=== PATIENT | male | born 1995 | race Caucasian/White ===

== ENCOUNTER 2020-10-01 17:27 | Inpatient (IN) | payer MEDICAID, OTHER ==
[~2020-10-01] VITALS: Ht 182.9 cm; Wt 77.3 kg
[2020-10-01] MEDS ORDERED: LORazepam 2 MG/ML VIAL IM ONE ×2 (21:30→22:30)
[2020-10-01] MEDS ORDERED: HALOPERIDOL LACTATE 5 MG/ML VIAL IM ONE ×2 (21:30→22:30)
[2020-10-01] MEDS ORDERED: DiphenhydrAMINE HCL 50 MG/ML VIAL IM ONE ×2 (21:30→22:30)
[2020-10-01] MEDS ORDERED: ZOLPIDEM TARTRATE 10 MG TABLET PO PRN (22:45)
[2020-10-01] MEDS ORDERED: HALOPERIDOL 5 MG TABLET PO PRN (22:45)
[2020-10-01 23:01] LABS: COVID AG,FIA SOURCE NASOPHARYNGEAL
[2020-10-01 23:55] LABS: BASOPHILS % (AUTO) 0.8 % (0.0-2.0); EOSINOPHILS % (AUTO) 0.5 % (1.0-6.0); HEMATOCRIT 42.7 % (41-53); HEMOGLOBIN 14.4 g/dL (13.5-17.5); LYMPHOCYTES # (AUTO) 2.8 K/uL (1.0-4.8); LYMPHOCYTES % (AUTO) 30.7 % (22.0-44.0); MEAN CORPUSCULAR HEMOGLOBIN 30.5 pg (26.0-34.0); MEAN CORPUSCULAR HGB CONC 33.6 G/dL (31.0-37.0); MEAN CORPUSCULAR VOLUME 91 fL (80-100); MONOCYTES # (AUTO) 0.6 K/uL (0.1-1.0); MONOCYTES % (AUTO) 6.4 % (2.0-9.0); NEUTROPHILS # (AUTO) 5.5 K/uL (1.8-7.7); NEUTROPHILS % (AUTO) 61.6 % (40.0-70.0); PLATELET COUNT (AUTO) 245 K/uL (150-450); RED BLOOD CELL COUNT(AUTO) 4.72 MIL/uL (4.50-5.90); RED CELL DISTRIBUTION WIDTH 13.1 % (11.5-14.5)
[2020-10-01 23:59] LABS: ANION GAP 5 mmol/L (8-16); CALCIUM, TOTAL 9.4 mg/dL (8.8-10.5); CARBON DIOXIDE 26 mmol/L (22-29); CHLORIDE 107 mmol/L (98-107); GLOMERULAR FILTR. RATE CALC > 60 mL/min (>60); GLUCOSE,RANDOM 97 mg/dL (70-110); POTASSIUM 3.5 mmol/L (3.5-5.1); SODIUM SERUM 138 mmol/L (136-145); UREA NITROGEN, BLOOD 13 mg/dL (7-18)
[2020-10-02 00:07] LABS: ALANINE AMINOTRANSFERASE 25 U/L (12-78); ALBUMIN 3.9 g/dL (3.4-5.0); ALKALINE PHOSPHATASE 100 U/L (46-116); ASPARTATE AMINOTRANSFERASE 21 U/L (15-37); BILIRUBIN,TOTAL 0.3 mg/dL (0.1-1.0); TOTAL PROTEIN, SERUM 7.1 g/dL (6.4-8.2)
[2020-10-02] MEDS ORDERED: GuaiFENesin/D-METHORPHAN [SUGAR-FREE] 200-20MG/10 ML SYRUP UDCUP PO PRN (15:15)
[2020-10-02] MEDS ORDERED: CloNIDine HCL 0.1 MG TABLET PO PRN (15:15)
[2020-10-02] MEDS ORDERED: ALBUTEROL SULFATE HFA 90 MCG/PUFF 8 GM INHALER IH PRN (15:15)
[2020-10-02] MEDS ORDERED: NICOTINE 14 MG/24 HOUR PATCH TD PRN (15:15)
[2020-10-02] MEDS ORDERED: PETROLATUM,WHITE 28 GM JELLY TP PRN (15:15)
[2020-10-02] MEDS ORDERED: ONDANSETRON HCL 4 MG TABLET PO PRN (15:15)
[2020-10-02] MEDS ORDERED: DOCUSATE SODIUM 100 MG CAPSULE PO PRN (15:15)
[2020-10-02] MEDS ORDERED: IBUPROFEN 400 MG TABLET PO PRN (15:15)
[2020-10-02] MEDS ORDERED: ACETAMINOPHEN 325 MG TABLET PO PRN (15:15)
[2020-10-02] MEDS ORDERED: MAG HYDROX/AL HYDROX/SIMETH ES 30 ML SUSPENSION UDCUP PO PRN (15:15)
[2020-10-02] MEDS ORDERED: LOPERAMIDE HCL 2 MG CAPSULE PO PRN (15:15)
[2020-10-02] MEDS ORDERED: MAGNESIUM HYDROXIDE SUSPENSION 30 ML UDCUP PO PRN (15:15)
[2020-10-03] MEDS ORDERED: HALOPERIDOL LACTATE 5 MG/ML VIAL IM ONE (18:00)
[2020-10-03] MEDS ORDERED: LORazepam 2 MG/ML VIAL IM ONE (18:00)
[2020-10-03] MEDS ORDERED: DiphenhydrAMINE HCL 50 MG/ML VIAL IM ONE (18:00)
[2020-10-03] MEDS: RisperiDONE 1 MG TABLET PO SCH (21:00)
[2020-10-04 16:21] VITALS: BP 107/60
[2020-10-04] MEDS: RisperiDONE 1 MG TABLET PO SCH (21:21)
[2020-10-05 02:27] VITALS: BP 124/78
[2020-10-05 08:24] VITALS: BP 109/59
[2020-10-05] MEDS: LORazepam 2 MG TABLET PO PRN (18:49)
[2020-10-05] MEDS: RisperiDONE 1 MG TABLET PO SCH (20:32)
[2020-10-06] MEDS: LORazepam 2 MG TABLET PO PRN (01:52)
[2020-10-06 06:31] VITALS: BP 104/65
[2020-10-06 08:29] VITALS: BP 108/62
[2020-10-06] MEDS ORDERED: RISP1TAB48 PO (09:27)
== END 2020-10-06 10:10 | disposition home or self-care (01) | DRG 751 ==
LOC: EMS 17:29 → B3A 10-02 14:13
DX: F29 Unspecified psychosis not due to a substance or known physiological condition (principal); F20.9 Schizophrenia, unspecified; R45.851 Suicidal ideations; I95.9 Hypotension, unspecified; Z20.828 Contact with and (suspected) exposure to other viral communicable diseases; R00.0 Tachycardia, unspecified; Z79.899 Other long term (current) drug therapy
CPT/HCPCS: 87426; G0480; J1200; J1630; J2060

== ENCOUNTER 2020-11-02 17:19 | Inpatient (IN) | payer MEDICAID, OTHER ==
[~2020-11-02] VITALS: Ht 180.3 cm; Wt 73.0 kg
[~2020-11-02 17:19] MED LIST: RISP1TAB48 PO
[2020-11-02] MEDS ORDERED: HydrOXYzine PAMOATE 25 MG CAPSULE PO ONE (21:30)
[2020-11-02] MEDS ORDERED: LORazepam 2 MG/ML VIAL IM ONE (23:45)
[2020-11-02] MEDS ORDERED: DiphenhydrAMINE HCL 50 MG/ML VIAL IM ONE (23:45)
[2020-11-03] MEDS ORDERED: HALOPERIDOL LACTATE 5 MG/ML VIAL IM ONE
[2020-11-03 00:16] LABS: AMPHET/METH SCREEN,URINE NEGATIVE (NEGATIVE); BARBITURATE SCREEN, URINE NEGATIVE (NEGATIVE); BENZODIAZEPINES SCREEN,URINE NEGATIVE (NEGATIVE); CANNABINOID SCREEN,URINE NEGATIVE (NEGATIVE); COCAINE SCREEN,URINE NEGATIVE (NEGATIVE); METHADONE SCREEN, URINE NEGATIVE (NEGATIVE); OPIATE SCREEN,URINE NEGATIVE (NEGATIVE)
[2020-11-03 00:32] LABS: PHENCYCLIDINE SCREEN,URINE NEGATIVE (NEGATIVE)
[2020-11-03 00:33] LABS: BASOPHILS % (AUTO) 0.9 % (0.0-2.0); EOSINOPHILS % (AUTO) 1.3 % (1.0-6.0); HEMATOCRIT 43.1 % (41-53); HEMOGLOBIN 14.1 g/dL (13.5-17.5); LYMPHOCYTES # (AUTO) 3.3 K/uL (1.0-4.8); LYMPHOCYTES % (AUTO) 32.3 % (22.0-44.0); MEAN CORPUSCULAR HEMOGLOBIN 30.1 pg (26.0-34.0); MEAN CORPUSCULAR HGB CONC 32.7 G/dL (31.0-37.0); MEAN CORPUSCULAR VOLUME 92 fL (80-100); MONOCYTES # (AUTO) 0.7 K/uL (0.1-1.0); MONOCYTES % (AUTO) 6.5 % (2.0-9.0); NEUTROPHILS # (AUTO) 6.1 K/uL (1.8-7.7); PLATELET COUNT (AUTO) 280 K/uL (150-450); RED BLOOD CELL COUNT(AUTO) 4.69 MIL/uL (4.50-5.90)
[2020-11-03 00:44] LABS: ANION GAP 7 mmol/L (8-16); CALCIUM, TOTAL 9.4 mg/dL (8.8-10.5); CARBON DIOXIDE 28 mmol/L (22-29); CHLORIDE 104 mmol/L (98-107); CREATININE 0.91 mg/dL (0.60-1.30); GLOMERULAR FILTR. RATE CALC > 60 mL/min (>60); GLUCOSE,RANDOM 106 mg/dL (70-110); POTASSIUM 3.5 mmol/L (3.5-5.1); SODIUM SERUM 139 mmol/L (136-145); UREA NITROGEN, BLOOD 12 mg/dL (7-18)
[2020-11-03 00:51] LABS: ALANINE AMINOTRANSFERASE 62 U/L (12-78); ALKALINE PHOSPHATASE 116 U/L (46-116); ASPARTATE AMINOTRANSFERASE 16 U/L (15-37); BILIRUBIN,TOTAL 0.2 mg/dL (0.1-1.0); TOTAL PROTEIN, SERUM 7.7 g/dL (6.4-8.2)
[2020-11-03 01:39] LABS: COVID AG,FIA SOURCE NASOPHARYNGEAL
[2020-11-03 06:12] VITALS: BP 105/65
[2020-11-03] MEDS ORDERED: ONDANSETRON HCL 4 MG TABLET PO PRN (07:30)
[2020-11-03] MEDS ORDERED: DOCUSATE SODIUM 100 MG CAPSULE PO PRN (07:30)
[2020-11-03] MEDS ORDERED: MAGNESIUM HYDROXIDE SUSPENSION 30 ML UDCUP PO PRN (07:30)
[2020-11-03] MEDS ORDERED: NICOTINE 14 MG/24 HOUR PATCH TD PRN (07:30)
[2020-11-03] MEDS ORDERED: ACETAMINOPHEN 325 MG TABLET PO PRN (07:30)
[2020-11-03] MEDS ORDERED: GuaiFENesin/D-METHORPHAN [SUGAR-FREE] 200-20MG/10 ML SYRUP UDCUP PO PRN (07:30)
[2020-11-03] MEDS ORDERED: CloNIDine HCL 0.1 MG TABLET PO PRN (07:30)
[2020-11-03] MEDS ORDERED: LOPERAMIDE HCL 2 MG CAPSULE PO PRN (07:30)
[2020-11-03] MEDS ORDERED: ALBUTEROL SULFATE HFA 90 MCG/PUFF 8 GM INHALER IH PRN (07:30)
[2020-11-03] MEDS ORDERED: PETROLATUM,WHITE 28 GM JELLY TP PRN (07:30)
[2020-11-03] MEDS ORDERED: IBUPROFEN 400 MG TABLET PO PRN (07:30)
[2020-11-03] MEDS ORDERED: MAG HYDROX/AL HYDROX/SIMETH ES 30 ML SUSPENSION UDCUP PO PRN (07:30)
[2020-11-03] MEDS: RisperiDONE 1 MG TABLET PO SCH ×2 (10:01→20:39)
[2020-11-03] MEDS: LORazepam 2 MG TABLET PO PRN ×2 (10:04→16:36)
[2020-11-03 16:00] VITALS: BP 102/62
[2020-11-03 16:03] VITALS: BP 102/62
[2020-11-03] MEDS: QUEtiapine FUMARATE 100 MG TABLET PO PRN (16:36)
[2020-11-04 04:21] VITALS: BP 126/68
[2020-11-04 04:29] VITALS: BP 126/68
[2020-11-04] MEDS: RisperiDONE 1 MG TABLET PO SCH (08:29)
[2020-11-04] MEDS ORDERED: RisperiDONE 2 MG TABLET PO SCH (09:00)
[2020-11-04] MEDS ORDERED: RisperiDONE 1 MG TABLET PO ONE (09:45)
[2020-11-04] MEDS: LORazepam 2 MG TABLET PO PRN ×2 (09:58→17:32)
[2020-11-04] MEDS: QUEtiapine FUMARATE 100 MG TABLET PO PRN ×2 (11:04→17:32)
[2020-11-04 16:42] VITALS: BP 109/74
[2020-11-04] MEDS: RisperiDONE 2 MG TABLET PO SCH (20:08)
[2020-11-04] MEDS: ZOLPIDEM TARTRATE 10 MG TABLET PO PRN (20:08)
[2020-11-05 08:25] VITALS: BP 129/67
[2020-11-05] MEDS: RisperiDONE 2 MG TABLET PO SCH ×2 (09:08→20:05)
[2020-11-05] MEDS: LORazepam 2 MG TABLET PO PRN ×2 (10:20→16:18)
[2020-11-05 16:11] VITALS: BP 102/52
[2020-11-05] MEDS: ZOLPIDEM TARTRATE 10 MG TABLET PO PRN (20:05)
[2020-11-06 04:13] VITALS: BP 116/67
[2020-11-06 08:19] VITALS: BP 127/81
[2020-11-06] MEDS: RisperiDONE 2 MG TABLET PO SCH ×2 (09:37→20:05)
[2020-11-06] MEDS: LORazepam 2 MG TABLET PO PRN ×3 (09:38→20:59)
[2020-11-06 16:03] VITALS: BP 118/60
[2020-11-06] MEDS: ZOLPIDEM TARTRATE 10 MG TABLET PO PRN (20:05)
[2020-11-07 05:31] VITALS: BP 121/79
[2020-11-07 08:02] VITALS: BP 109/66
[2020-11-07] MEDS: RisperiDONE 2 MG TABLET PO SCH (08:10)
[2020-11-07] MEDS: LORazepam 2 MG TABLET PO PRN (08:11)
[2020-11-07] MEDS ORDERED: RISP2TAB76 PO (08:23)
== END 2020-11-07 11:16 | disposition home or self-care (01) | DRG 750 ==
LOC: EMS 17:19 → B3A 11-03 03:27
DX: F20.0 Paranoid schizophrenia (principal); Z20.822 Contact with and (suspected) exposure to COVID-19; R45.851 Suicidal ideations; I95.9 Hypotension, unspecified; F17.200 Nicotine dependence, unspecified, uncomplicated; F10.10 Alcohol abuse, uncomplicated; Z79.899 Other long term (current) drug therapy
CPT/HCPCS: 87081; 87426; G0480; J1200; J1630; J2060

== ENCOUNTER 2020-11-17 14:05 | Inpatient (IN) | payer MEDICAID ==
[~2020-11-17] VITALS: Ht 180.3 cm; Wt 72.7 kg
[~2020-11-17 14:05] MED LIST changes: -RISP1TAB48 PO; +RISP2TAB76 PO
[2020-11-17] MEDS ORDERED: LORazepam 1 MG TABLET PO ONE (15:15)
[2020-11-17 15:35] LABS: BASOPHILS % (AUTO) 0.5 % (0.0-2.0); EOSINOPHILS % (AUTO) 0.6 % (1.0-6.0); HEMATOCRIT 45.8 % (41-53); HEMOGLOBIN 15.3 g/dL (13.5-17.5); LYMPHOCYTES # (AUTO) 1.7 K/uL (1.0-4.8); LYMPHOCYTES % (AUTO) 33.8 % (22.0-44.0); MEAN CORPUSCULAR HGB CONC 33.4 G/dL (31.0-37.0); MEAN CORPUSCULAR VOLUME 90 fL (80-100); MONOCYTES # (AUTO) 0.6 K/uL (0.1-1.0); MONOCYTES % (AUTO) 11.1 % (2.0-9.0); NEUTROPHILS # (AUTO) 2.7 K/uL (1.8-7.7); PLATELET COUNT (AUTO) 187 K/uL (150-450); RED CELL DISTRIBUTION WIDTH 13.4 % (11.5-14.5)
[2020-11-17 15:43] LABS: COVID AG,FIA SOURCE NASOPHARYNGEAL
[2020-11-17 15:46] LABS: ANION GAP 9 mmol/L (8-16); CALCIUM, TOTAL 9.4 mg/dL (8.8-10.5); CARBON DIOXIDE 27 mmol/L (22-29); CHLORIDE 103 mmol/L (98-107); CREATININE 1.14 mg/dL (0.60-1.30); GLOMERULAR FILTR. RATE CALC > 60 mL/min (>60); GLUCOSE,RANDOM 86 mg/dL (70-110); POTASSIUM 3.5 mmol/L (3.5-5.1); SODIUM SERUM 139 mmol/L (136-145); UREA NITROGEN, BLOOD 15 mg/dL (7-18)
[2020-11-17 15:51] LABS: ALANINE AMINOTRANSFERASE 30 U/L (12-78); ALBUMIN 4.3 g/dL (3.4-5.0); ALKALINE PHOSPHATASE 97 U/L (46-116); ASPARTATE AMINOTRANSFERASE 18 U/L (15-37); BILIRUBIN,TOTAL 0.4 mg/dL (0.1-1.0); TOTAL PROTEIN, SERUM 7.9 g/dL (6.4-8.2)
[2020-11-17 16:30] LABS: AMPHET/METH SCREEN,URINE POSITIVE (NEGATIVE); BARBITURATE SCREEN, URINE NEGATIVE (NEGATIVE); BENZODIAZEPINES SCREEN,URINE NEGATIVE (NEGATIVE); CANNABINOID SCREEN,URINE POSITIVE (NEGATIVE); COCAINE SCREEN,URINE NEGATIVE (NEGATIVE); METHADONE SCREEN, URINE NEGATIVE (NEGATIVE); OPIATE SCREEN,URINE NEGATIVE (NEGATIVE)
[2020-11-17 16:36] LABS: PHENCYCLIDINE SCREEN,URINE NEGATIVE (NEGATIVE)
[2020-11-17 18:42] VITALS: BP 109/57
== END 2020-11-17 23:04 | disposition left against medical advice (07) | DRG 750 ==
LOC: EMS 14:13 → B3A 17:34
DX: F20.9 Schizophrenia, unspecified (principal); F15.90 Other stimulant use, unspecified, uncomplicated; Z87.891 Personal history of nicotine dependence; Z20.822 Contact with and (suspected) exposure to COVID-19
CPT/HCPCS: 87426; 99285; G0480; 36415-L1; 36415-TC; 80053-TC; 80307; 80307-TC; 85025-TC; Z7502; Z7610

== ENCOUNTER 2022-06-23 00:13 | Inpatient (IN) | payer MEDICAID, OTHER ==
[~2022-06-23] VITALS: Ht 180.3 cm; Wt 71.5 kg
[2022-06-23 01:51] LABS: BASOPHILS % (AUTO) 0.5 % (0.0-2.0); EOSINOPHILS % (AUTO) 0 % (1.0-6.0); HEMOGLOBIN 14.7 g/dL (13.5-17.5); LYMPHOCYTES # (AUTO) 1.2 K/uL (1.0-4.8); LYMPHOCYTES % (AUTO) 9.9 % (22.0-44.0); MEAN CORPUSCULAR HEMOGLOBIN 29.2 pg (26.0-34.0); MEAN CORPUSCULAR HGB CONC 33.5 G/dL (31.0-37.0); MEAN CORPUSCULAR VOLUME 87 fL (80-100); MONOCYTES % (AUTO) 8.3 % (2.0-9.0); NEUTROPHILS # (AUTO) 10.1 K/uL (1.8-7.7); NEUTROPHILS % (AUTO) 81.3 % (40.0-70.0); PLATELET COUNT (AUTO) 183 K/uL (150-450); RED BLOOD CELL COUNT(AUTO) 5.05 MIL/uL (4.50-5.90); RED CELL DISTRIBUTION WIDTH 14.6 % (11.5-14.5)
[2022-06-23 02:00] LABS: ANION GAP 15 mmol/L (8-16); CARBON DIOXIDE 24 mmol/L (22-29); CHLORIDE 105 mmol/L (98-107); CREATININE 1.44 mg/dL (0.60-1.30); GLUCOSE,RANDOM 103 mg/dL (70-110); POTASSIUM 3.6 mmol/L (3.5-5.1); SODIUM SERUM 144 mmol/L (136-145); UREA NITROGEN, BLOOD 22 mg/dL (7-18)
[2022-06-23 02:02] LABS: GLOMERULAR FILTR. RATE CALC 58 mL/min (>60)
[2022-06-23 02:05] LABS: ALANINE AMINOTRANSFERASE 39 U/L (12-78); ALBUMIN 4.8 g/dL (3.4-5.0); ALKALINE PHOSPHATASE 78 U/L (46-116); ASPARTATE AMINOTRANSFERASE 35 U/L (15-37); TOTAL PROTEIN, SERUM 8.1 g/dL (6.4-8.2)
[2022-06-23] MEDS ORDERED: RisperiDONE 1 MG TABLET PO ONE (03:30)
[2022-06-23 05:16] LABS: COVID AG,FIA SOURCE NASAL SWAB
[2022-06-23 09:30] VITALS: BP 123/60
[2022-06-23] MEDS: RisperiDONE 2 MG TABLET PO SCH ×3 (11:00→20:39)
[2022-06-23] MEDS ORDERED: PETROLATUM,WHITE 28 GM JELLY TP PRN (17:00)
[2022-06-23] MEDS ORDERED: MAG HYDROX/AL HYDROX/SIMETH ES 30 ML SUSPENSION UDCUP PO PRN (17:00)
[2022-06-23] MEDS ORDERED: GuaiFENesin/D-METHORPHAN [SUGAR-FREE] 200-20MG/10 ML SYRUP UDCUP PO PRN (17:00)
[2022-06-23] MEDS ORDERED: ALBUTEROL SULFATE HFA 90 MCG/PUFF 8 GM INHALER IH PRN (17:00)
[2022-06-23] MEDS ORDERED: MAGNESIUM HYDROXIDE SUSPENSION 30 ML UDCUP PO PRN (17:00)
[2022-06-23] MEDS ORDERED: IBUPROFEN 400 MG TABLET PO PRN (17:00)
[2022-06-23] MEDS ORDERED: DOCUSATE SODIUM 100 MG CAPSULE PO PRN (17:00)
[2022-06-23] MEDS ORDERED: CloNIDine HCL 0.1 MG TABLET PO PRN (17:00)
[2022-06-23] MEDS ORDERED: ONDANSETRON HCL 4 MG TABLET PO PRN (17:00)
[2022-06-23] MEDS ORDERED: ACETAMINOPHEN 325 MG TABLET PO PRN (17:00)
[2022-06-23] MEDS ORDERED: LOPERAMIDE HCL 2 MG CAPSULE PO PRN (17:00)
[2022-06-23] MEDS: LORazepam 2 MG TABLET PO PRN (17:06)
[2022-06-23] MEDS: HALOPERIDOL 5 MG TABLET PO PRN (17:06)
[2022-06-23] MEDS: ZOLPIDEM TARTRATE 10 MG TABLET PO PRN (22:23)
[2022-06-24 08:08] VITALS: BP 128/79
[2022-06-24] MEDS: RisperiDONE 2 MG TABLET PO SCH ×2 (08:32→20:36)
[2022-06-24 16:36] VITALS: BP 111/70
[2022-06-25 08:00] VITALS: BP 118/67
[2022-06-25] MEDS: RisperiDONE 2 MG TABLET PO SCH ×2 (09:00→21:00)
[2022-06-25 16:00] VITALS: BP 98/59
[2022-06-25 16:47] VITALS: BP 98/69
[2022-06-26] MEDS: RisperiDONE 2 MG TABLET PO SCH ×2 (08:07→21:00)
[2022-06-26 08:23] VITALS: BP 111/50
[2022-06-26] MEDS ORDERED: LORazepam 2 MG/ML VIAL ONE (15:19)
[2022-06-26] MEDS ORDERED: HALOPERIDOL LACTATE 5 MG/ML VIAL ONE (15:19)
[2022-06-26] MEDS ORDERED: DiphenhydrAMINE HCL 50 MG/ML VIAL ONE (15:20)
[2022-06-26] MEDS ORDERED: LORazepam 2 MG/ML VIAL IM ONE (15:30)
[2022-06-26] MEDS ORDERED: DiphenhydrAMINE HCL 50 MG/ML VIAL IM ONE (15:30)
[2022-06-26] MEDS ORDERED: HALOPERIDOL LACTATE 5 MG/ML VIAL IM ONE (15:30)
[2022-06-27] MEDS: RisperiDONE 2 MG TABLET PO SCH ×2 (08:11→20:15)
[2022-06-27 10:06] VITALS: BP 113/60
[2022-06-27 16:00] VITALS: BP 111/68
[2022-06-27] MEDS: ZOLPIDEM TARTRATE 10 MG TABLET PO PRN (21:04)
[2022-06-28 00:50] VITALS: BP 138/74
[2022-06-28] MEDS: LORazepam 2 MG TABLET PO PRN (00:55)
[2022-06-28 08:10] LABS: BASOPHILS % (AUTO) 0.8 % (0.0-2.0); EOSINOPHILS % (AUTO) 1.9 % (1.0-6.0); HEMATOCRIT 39.9 % (41-53); HEMOGLOBIN 13.3 g/dL (13.5-17.5); LYMPHOCYTES # (AUTO) 2.8 K/uL (1.0-4.8); LYMPHOCYTES % (AUTO) 35.2 % (22.0-44.0); MEAN CORPUSCULAR HEMOGLOBIN 29.4 pg (26.0-34.0); MEAN CORPUSCULAR HGB CONC 33.4 G/dL (31.0-37.0); MEAN CORPUSCULAR VOLUME 88 fL (80-100); MONOCYTES # (AUTO) 0.7 K/uL (0.1-1.0); MONOCYTES % (AUTO) 9.1 % (2.0-9.0); NEUTROPHILS # (AUTO) 4.2 K/uL (1.8-7.7); PLATELET COUNT (AUTO) 174 K/uL (150-450); RED BLOOD CELL COUNT(AUTO) 4.54 MIL/uL (4.50-5.90); RED CELL DISTRIBUTION WIDTH 14.4 % (11.5-14.5)
[2022-06-28 08:21] LABS: ANION GAP 2 mmol/L (8-16); CALCIUM, TOTAL 8.5 mg/dL (8.8-10.5); CARBON DIOXIDE 31 mmol/L (22-29); CHLORIDE 106 mmol/L (98-107); CREATININE 0.72 mg/dL (0.60-1.30); GLOMERULAR FILTR. RATE CALC > 60 mL/min (>60); GLUCOSE,RANDOM 88 mg/dL (70-110); POTASSIUM 3.7 mmol/L (3.5-5.1); SODIUM SERUM 139 mmol/L (136-145); UREA NITROGEN, BLOOD 14 mg/dL (7-18)
[2022-06-28] MEDS: RisperiDONE 2 MG TABLET PO SCH ×2 (08:52→21:00)
[2022-06-28 09:16] VITALS: BP 104/55
[2022-06-28 17:59] VITALS: BP 116/82
[2022-06-28] MEDS: NICOTINE 14 MG/24 HOUR PATCH TD PRN (17:59)
[2022-06-29 06:10] LABS: COVID AG,FIA SOURCE NASAL SWAB
[2022-06-29 08:37] VITALS: BP 151/99
[2022-06-29] MEDS: RisperiDONE 2 MG TABLET PO SCH ×2 (09:00→20:37)
[2022-06-29 16:28] VITALS: BP 142/74
[2022-06-29 16:29] VITALS: BP 142/74
[2022-06-30 08:00] VITALS: BP 144/77
[2022-06-30] MEDS: NICOTINE 14 MG/24 HOUR PATCH TD PRN (08:17)
[2022-06-30] MEDS: RisperiDONE 2 MG TABLET PO SCH ×2 (08:35→20:31)
[2022-06-30 16:00] VITALS: BP 152/104
[2022-06-30 16:07] VITALS: BP 152/104
[2022-07-01 08:27] VITALS: BP 130/80
[2022-07-01] MEDS: RisperiDONE 2 MG TABLET PO SCH ×2 (09:00→21:00)
[2022-07-02] MEDS: RisperiDONE 2 MG TABLET PO SCH ×2 (08:37→20:50)
[2022-07-02 08:46] VITALS: BP 128/78
[2022-07-02] MEDS: NICOTINE 14 MG/24 HOUR PATCH TD PRN (12:54)
[2022-07-02 16:21] VITALS: BP 128/74
[2022-07-03] MEDS: RisperiDONE 2 MG TABLET PO SCH ×2 (07:59→21:02)
[2022-07-04] MEDS: RisperiDONE 2 MG TABLET PO SCH ×3 (09:00→20:25)
[2022-07-04 09:34] VITALS: BP 121/55
[2022-07-04 16:13] VITALS: BP 155/96
[2022-07-04] MEDS ORDERED: HALOPERIDOL LACTATE 5 MG/ML VIAL IM PRN (17:30)
[2022-07-04] MEDS ORDERED: DiphenhydrAMINE HCL 50 MG/ML VIAL IM ONE (18:45)
[2022-07-04] MEDS ORDERED: LORazepam 2 MG/ML VIAL IM ONE (18:45)
[2022-07-04] MEDS ORDERED: DiphenhydrAMINE HCL 50 MG/ML VIAL ONE (18:45)
[2022-07-04] MEDS ORDERED: HALOPERIDOL LACTATE 5 MG/ML VIAL IM ONE (18:45)
[2022-07-04] MEDS ORDERED: LORazepam 2 MG/ML VIAL ONE (18:45)
[2022-07-05] MEDS: RisperiDONE 2 MG TABLET PO SCH ×2 (08:58→20:09)
[2022-07-05 16:45] VITALS: BP 108/81
[2022-07-05] MEDS: NICOTINE 14 MG/24 HOUR PATCH TD PRN (18:29)
[2022-07-05] MEDS ORDERED: LORazepam 2 MG/ML VIAL IM ONE (22:15)
[2022-07-05] MEDS ORDERED: HALOPERIDOL LACTATE 5 MG/ML VIAL IM ONE (22:15)
[2022-07-05] MEDS ORDERED: DiphenhydrAMINE HCL 50 MG/ML VIAL IM ONE (22:15)
[2022-07-06 01:27] LABS: COVID AG,FIA SOURCE NASAL SWAB
[2022-07-06 08:51] VITALS: BP 113/58
[2022-07-06] MEDS: LORazepam 2 MG TABLET PO PRN ×3 (09:03→17:18)
[2022-07-06] MEDS: HALOPERIDOL 5 MG TABLET PO PRN (09:03)
[2022-07-06] MEDS: RisperiDONE 2 MG TABLET PO SCH ×2 (09:03→20:23)
[2022-07-06] MEDS: NICOTINE 14 MG/24 HOUR PATCH TD PRN (11:08)
[2022-07-06 16:19] VITALS: BP 104/63
[2022-07-07] MEDS: LORazepam 2 MG TABLET PO PRN ×2 (08:11→18:51)
[2022-07-07] MEDS: RisperiDONE 2 MG TABLET PO SCH ×2 (08:11→20:39)
[2022-07-07 08:52] VITALS: BP 142/86
[2022-07-07] MEDS: NICOTINE 14 MG/24 HOUR PATCH TD PRN (09:35)
[2022-07-07 16:38] VITALS: BP 98/62
[2022-07-07] MEDS: HALOPERIDOL 5 MG TABLET PO PRN (18:51)
[2022-07-07] MEDS: ZOLPIDEM TARTRATE 10 MG TABLET PO PRN (21:14)
[2022-07-08 08:00] VITALS: BP 135/68
[2022-07-08] MEDS: RisperiDONE 2 MG TABLET PO SCH ×2 (08:26→20:20)
[2022-07-08 16:00] VITALS: BP 130/68
[2022-07-08] MEDS ORDERED: LORazepam 2 MG/ML VIAL IM ONE (19:00)
[2022-07-08] MEDS ORDERED: HALOPERIDOL LACTATE 5 MG/ML VIAL IM ONE (19:00)
[2022-07-08] MEDS ORDERED: DiphenhydrAMINE HCL 50 MG/ML VIAL IM ONE (19:00)
[2022-07-09 08:23] VITALS: BP 106/66
[2022-07-09] MEDS: RisperiDONE 2 MG TABLET PO SCH ×2 (08:33→20:08)
[2022-07-09] MEDS: NICOTINE 14 MG/24 HOUR PATCH TD PRN (15:19)
[2022-07-09 16:13] VITALS: BP 117/75
[2022-07-09] MEDS: LORazepam 2 MG TABLET PO PRN (19:14)
[2022-07-09] MEDS ORDERED: DiphenhydrAMINE HCL 50 MG/ML VIAL ONE (21:48)
[2022-07-09] MEDS ORDERED: LORazepam 2 MG/ML VIAL ONE (21:48)
[2022-07-09] MEDS ORDERED: DiphenhydrAMINE HCL 50 MG/ML VIAL IM ONE (22:00)
[2022-07-09] MEDS ORDERED: HALOPERIDOL LACTATE 5 MG/ML VIAL IM ONE (22:00)
[2022-07-09] MEDS ORDERED: LORazepam 2 MG/ML VIAL IM ONE (22:00)
[2022-07-10 08:44] VITALS: BP 146/71
[2022-07-10] MEDS: LORazepam 2 MG TABLET PO PRN ×2 (09:51→17:57)
[2022-07-10] MEDS: HALOPERIDOL 5 MG TABLET PO PRN ×2 (09:51→17:58)
[2022-07-10] MEDS: RisperiDONE 2 MG TABLET PO SCH ×2 (09:51→20:46)
[2022-07-10 16:28] VITALS: BP 119/76
[2022-07-10] MEDS: NICOTINE 14 MG/24 HOUR PATCH TD PRN (18:23)
[2022-07-10 20:39] VITALS: BP 129/81
[2022-07-11 08:12] VITALS: BP 106/55
[2022-07-11] MEDS: RisperiDONE 2 MG TABLET PO SCH ×2 (11:14→20:28)
[2022-07-11] MEDS: HALOPERIDOL 5 MG TABLET PO PRN (11:15)
[2022-07-11] MEDS: LORazepam 2 MG TABLET PO PRN ×2 (11:15→19:48)
[2022-07-11] MEDS: NICOTINE 14 MG/24 HOUR PATCH TD PRN (11:32)
[2022-07-11 16:11] VITALS: BP 130/85
[2022-07-11] MEDS: ZOLPIDEM TARTRATE 10 MG TABLET PO PRN (20:27)
[2022-07-12] MEDS: HALOPERIDOL 5 MG TABLET PO PRN (08:39)
[2022-07-12] MEDS: RisperiDONE 2 MG TABLET PO SCH ×2 (08:39→20:30)
[2022-07-12 10:03] VITALS: BP 98/51
[2022-07-12] MEDS: LORazepam 2 MG TABLET PO PRN ×2 (12:03→18:33)
[2022-07-12] MEDS: NICOTINE 14 MG/24 HOUR PATCH TD PRN (12:06)
[2022-07-12 16:58] VITALS: BP 101/62
[2022-07-12] MEDS: ZOLPIDEM TARTRATE 10 MG TABLET PO PRN (20:30)
[2022-07-13 06:52] LABS: COVID AG,FIA SOURCE NASAL SWAB
[2022-07-13] MEDS: RisperiDONE 2 MG TABLET PO SCH ×2 (08:06→20:46)
[2022-07-13] MEDS: HALOPERIDOL 5 MG TABLET PO PRN ×2 (08:06→16:07)
[2022-07-13 08:52] VITALS: BP 131/75
[2022-07-13] MEDS: NICOTINE 14 MG/24 HOUR PATCH TD PRN (12:52)
[2022-07-13] MEDS: LORazepam 2 MG TABLET PO PRN (12:55)
[2022-07-13 16:09] VITALS: BP 109/77
[2022-07-13] MEDS: ZOLPIDEM TARTRATE 10 MG TABLET PO PRN (20:46)
[2022-07-14] MEDS: RisperiDONE 2 MG TABLET PO SCH ×2 (08:47→21:28)
[2022-07-14 09:13] VITALS: BP 116/66
[2022-07-14] MEDS: LORazepam 2 MG TABLET PO PRN ×3 (10:29→22:27)
[2022-07-14 16:19] VITALS: BP 101/55
[2022-07-14] MEDS: NICOTINE 14 MG/24 HOUR PATCH TD PRN (17:16)
[2022-07-14] MEDS: ZOLPIDEM TARTRATE 10 MG TABLET PO PRN (21:28)
[2022-07-15] MEDS: RisperiDONE 2 MG TABLET PO SCH ×2 (08:29→20:17)
[2022-07-15 09:06] VITALS: BP 140/77
[2022-07-15] MEDS: LORazepam 2 MG TABLET PO PRN ×3 (11:33→22:38)
[2022-07-15 16:05] VITALS: BP 119/76
[2022-07-15] MEDS: HALOPERIDOL 5 MG TABLET PO PRN (19:31)
[2022-07-15] MEDS: ZOLPIDEM TARTRATE 10 MG TABLET PO PRN (20:17)
[2022-07-16] MEDS: RisperiDONE 2 MG TABLET PO SCH (08:23)
[2022-07-16 08:33] VITALS: BP 107/49
[2022-07-16] MEDS ORDERED: RISP2TAB86 PO (09:14)
[2022-07-16] MEDS: NICOTINE 14 MG/24 HOUR PATCH TD PRN (09:16)
[2022-07-16 09:17] VITALS: BP 115/62
[2022-07-16] MEDS: LORazepam 2 MG TABLET PO PRN (09:18)
== END 2022-07-16 10:30 | disposition home or self-care (01) | DRG 750 ==
LOC: EMS 00:19 → 3EC 09:00
PROVIDERS: ADMIT Psychiatry & Neurology Psychiatry; ATTEND Psychiatry & Neurology Psychiatry
DX: F20.0 Paranoid schizophrenia (principal); N17.9 Acute kidney failure, unspecified; G47.00 Insomnia, unspecified; D72.829 Elevated white blood cell count, unspecified; F15.90 Other stimulant use, unspecified, uncomplicated; F10.10 Alcohol abuse, uncomplicated; F41.9 Anxiety disorder, unspecified; Z20.822 Contact with and (suspected) exposure to COVID-19; Z59.00 Homelessness unspecified; Z79.899 Other long term (current) drug therapy; Z87.891 Personal history of nicotine dependence
CPT/HCPCS: 80048; 80053; 85025; 87081; 99285; G0480; J1200; J1630; J2060; J3535

== ENCOUNTER 2023-08-29 18:56 | Emergency (ER) | payer MEDICAID ==
[~2023-08-29] VITALS: Ht 180.3 cm; Wt 85.0 kg
[~2023-08-29 18:56] MED LIST changes: -RISP2TAB76 PO; +RISP2TAB86 PO
[2023-08-29 19:08] VITALS: TEMP 98.2
[2023-08-29 19:38] VITALS: BP 117/71; PULSE 92; RESP 17
[2023-08-29] MEDS ORDERED: LORazepam 1 MG TABLET PO ONE (20:00)
== END 2023-08-29 20:03 | disposition home or self-care (01) ==
LOC: EMS 18:57
DX: F15.10 Other stimulant abuse, uncomplicated (principal); F17.210 Nicotine dependence, cigarettes, uncomplicated; F20.9 Schizophrenia, unspecified
CPT/HCPCS: 99284; 99406; Z7502; Z7610

== ENCOUNTER 2023-08-30 22:41 | Inpatient (IN) | payer MEDICAID, OTHER ==
[~2023-08-30] VITALS: Ht 180.3 cm; Wt 67.2 kg
[2023-08-30 23:25] LABS: AMPHET/METH SCREEN,URINE NEGATIVE (NEGATIVE); BARBITURATE SCREEN, URINE NEGATIVE (NEGATIVE); BENZODIAZEPINES SCREEN,URINE NEGATIVE (NEGATIVE); CANNABINOID SCREEN,URINE NEGATIVE (NEGATIVE); COCAINE SCREEN,URINE NEGATIVE (NEGATIVE); METHADONE SCREEN, URINE NEGATIVE (NEGATIVE); OPIATE SCREEN,URINE NEGATIVE (NEGATIVE); PHENCYCLIDINE SCREEN,URINE NEGATIVE (NEGATIVE)
[2023-08-30 23:30] LABS: ALCOHOL, URINE DRUG SCREEN NEGATIVE (NEGATIVE)
[2023-08-30 23:52] LABS: BASOPHILS % (AUTO) 0.7 % (0.0-2.0); EOSINOPHILS % (AUTO) 1.1 % (1.0-6.0); HEMATOCRIT 41.9 % (41-53); HEMOGLOBIN 14.1 g/dL (13.5-17.5); LYMPHOCYTES # (AUTO) 3.4 K/uL (1.0-4.8); LYMPHOCYTES % (AUTO) 32.5 % (22.0-44.0); MEAN CORPUSCULAR HEMOGLOBIN 30.8 pg (26.0-34.0); MEAN CORPUSCULAR HGB CONC 33.7 G/dL (31.0-37.0); MEAN CORPUSCULAR VOLUME 91 fL (80-100); MONOCYTES # (AUTO) 0.7 K/uL (0.1-1.0); MONOCYTES % (AUTO) 6.4 % (2.0-9.0); NEUTROPHILS # (AUTO) 6.1 K/uL (1.8-7.7); NEUTROPHILS % (AUTO) 59.3 % (40.0-70.0); PLATELET COUNT (AUTO) 248 K/uL (150-450); RED BLOOD CELL COUNT(AUTO) 4.59 MIL/uL (4.50-5.90); RED CELL DISTRIBUTION WIDTH 15.1 % (11.5-14.5); WHITE BLOOD COUNT (AUTO) 10.3 K/uL (4.5-11.0)
[2023-08-31] LABS: ANION GAP 8 mmol/L (8-16); CALCIUM, TOTAL 8.8 mg/dL (8.8-10.5); CARBON DIOXIDE 29 mmol/L (22-29); CHLORIDE 105 mmol/L (98-107); CREATININE 0.82 mg/dL (0.60-1.30); GLOMERULAR FILTR. RATE CALC > 60 mL/min (>60); GLUCOSE,RANDOM 90 mg/dL (70-110); POTASSIUM 3.7 mmol/L (3.5-5.1); SODIUM SERUM 142 mmol/L (136-145); UREA NITROGEN, BLOOD 18 mg/dL (7-18)
[2023-08-31 00:04] LABS: ALANINE AMINOTRANSFERASE 39 U/L (12-78); ALBUMIN 3.8 g/dL (3.4-5.0); ALKALINE PHOSPHATASE 101 U/L (46-116); ASPARTATE AMINOTRANSFERASE 19 U/L (15-37); BILIRUBIN,TOTAL 0.2 mg/dL (0.1-1.0); TOTAL PROTEIN, SERUM 7.4 g/dL (6.4-8.2)
[2023-08-31 00:11] LABS: ALCOHOL, BLOOD (SERUM) < 3 mg/dL (0-10)
[2023-08-31 00:44] LABS: COVID AG,FIA SOURCE NASAL SWAB; SARS-COV2 (COVID) ANTIGEN,FIA Negative (Negative)
[2023-08-31] MEDS ORDERED: HALOPERIDOL 5 MG TABLET PO PRN (00:45)
[2023-08-31] MEDS ORDERED: ZOLPIDEM TARTRATE 10 MG TABLET PO PRN (00:45)
[2023-08-31] MEDS: LORazepam 2 MG TABLET PO PRN ×2 (02:30→20:21)
[2023-09-01 04:47] VITALS: BP 125/76; PULSE 89; RESP 18; TEMP 97.8; O2SAT 100
[2023-09-01 08:12] VITALS: BP 116/76; PULSE 89; RESP 17; TEMP 97.8; O2SAT 99
[2023-09-01] MEDS: LORazepam 2 MG TABLET PO PRN (08:49)
[2023-09-01] MEDS ORDERED: MAG HYDROX/ALUMINUM HYD/SIMETH ES 30 ML SUSPENSION UDCUP PO PRN (12:00)
[2023-09-01] MEDS ORDERED: ONDANSETRON HCL 4 MG TABLET PO PRN (12:00)
[2023-09-01] MEDS ORDERED: LOPERAMIDE HCL 2 MG CAPSULE PO PRN (12:00)
[2023-09-01] MEDS ORDERED: IBUPROFEN 400 MG TABLET PO PRN (12:00)
[2023-09-01] MEDS ORDERED: ALBUTEROL SULFATE HFA 90 MCG/PUFF 8 GM INHALER IH PRN (12:00)
[2023-09-01] MEDS ORDERED: DOCUSATE SODIUM 100 MG CAPSULE PO PRN (12:00)
[2023-09-01] MEDS ORDERED: NICOTINE 14 MG/24 HOUR PATCH TD PRN (12:00)
[2023-09-01] MEDS ORDERED: ACETAMINOPHEN 325 MG TABLET PO PRN (12:00)
[2023-09-01] MEDS ORDERED: CloNIDine HCL 0.1 MG TABLET PO PRN (12:00)
[2023-09-01] MEDS ORDERED: MAGNESIUM HYDROXIDE SUSPENSION 30 ML UDCUP PO PRN (12:00)
[2023-09-01] MEDS ORDERED: PETROLATUM,WHITE 28 GM JELLY TP PRN (12:00)
[2023-09-01] MEDS ORDERED: GuaiFENesin/D-METHORPHAN [SUGAR-FREE] 200-20MG/10 ML SYRUP UDCUP PO PRN (12:00)
== END 2023-09-01 12:35 | disposition left against medical advice (07) | DRG 750 ==
LOC: EMS 22:44 → B2S 09-01 02:00
PROVIDERS: ADMIT Psychiatry & Neurology Child & Adolescent Psychiatry; ATTEND Psychiatry & Neurology Child & Adolescent Psychiatry
DX: F20.0 Paranoid schizophrenia (principal); R45.851 Suicidal ideations; F17.210 Nicotine dependence, cigarettes, uncomplicated; F41.9 Anxiety disorder, unspecified; G47.00 Insomnia, unspecified; Z53.29 Procedure and treatment not carried out because of patient's decision for other reasons; Z20.822 Contact with and (suspected) exposure to COVID-19
CPT/HCPCS: 80053; 80307; 85025; 99285; G0480

== ENCOUNTER 2023-09-27 09:47 | Inpatient (IN) | payer MEDICAID, OTHER ==
[~2023-09-27] VITALS: Ht 180.3 cm; Wt 69.5 kg
[2023-09-27 10:24] LABS: BASOPHILS % (AUTO) 0.6 % (0.0-2.0); EOSINOPHILS % (AUTO) 0.8 % (1.0-6.0); HEMATOCRIT 39.7 % (41-53); HEMOGLOBIN 13.6 g/dL (13.5-17.5); LYMPHOCYTES # (AUTO) 2.4 K/uL (1.0-4.8); LYMPHOCYTES % (AUTO) 24.5 % (22.0-44.0); MEAN CORPUSCULAR HGB CONC 34.3 G/dL (31.0-37.0); MEAN CORPUSCULAR VOLUME 90 fL (80-100); MONOCYTES # (AUTO) 0.7 K/uL (0.1-1.0); MONOCYTES % (AUTO) 6.8 % (2.0-9.0); NEUTROPHILS # (AUTO) 6.6 K/uL (1.8-7.7); NEUTROPHILS % (AUTO) 67.3 % (40.0-70.0); PLATELET COUNT (AUTO) 221 K/uL (150-450); RED CELL DISTRIBUTION WIDTH 14.2 % (11.5-14.5); WHITE BLOOD COUNT (AUTO) 9.8 K/uL (4.5-11.0)
[2023-09-27 10:42] LABS: ALCOHOL, URINE DRUG SCREEN NEGATIVE (NEGATIVE); AMPHET/METH SCREEN,URINE NEGATIVE (NEGATIVE); BARBITURATE SCREEN, URINE NEGATIVE (NEGATIVE); BENZODIAZEPINES SCREEN,URINE NEGATIVE (NEGATIVE); CANNABINOID SCREEN,URINE POSITIVE (NEGATIVE); COCAINE SCREEN,URINE POSITIVE (NEGATIVE); METHADONE SCREEN, URINE NEGATIVE (NEGATIVE); OPIATE SCREEN,URINE NEGATIVE (NEGATIVE); PHENCYCLIDINE SCREEN,URINE NEGATIVE (NEGATIVE)
[2023-09-27 10:45] LABS: ANION GAP 2 mmol/L (8-16); CALCIUM, TOTAL 8.9 mg/dL (8.8-10.5); CARBON DIOXIDE 32 mmol/L (22-29); CHLORIDE 104 mmol/L (98-107); CREATININE 0.63 mg/dL (0.60-1.30); GLOMERULAR FILTR. RATE CALC > 60 mL/min (>60); GLUCOSE,RANDOM 91 mg/dL (70-110); SODIUM SERUM 138 mmol/L (136-145); UREA NITROGEN, BLOOD 18 mg/dL (7-18)
[2023-09-27 10:46] LABS: ALCOHOL, BLOOD (SERUM) < 3 mg/dL (0-10)
[2023-09-27 10:51] LABS: ALANINE AMINOTRANSFERASE 51 U/L (12-78); ALBUMIN 3.7 g/dL (3.4-5.0); ALKALINE PHOSPHATASE 111 U/L (46-116); ASPARTATE AMINOTRANSFERASE 31 U/L (15-37); BILIRUBIN,TOTAL 0.2 mg/dL (0.1-1.0); TOTAL PROTEIN, SERUM 7.3 g/dL (6.4-8.2)
[2023-09-27 12:13] LABS: COVID AG,FIA SOURCE NASAL SWAB
[2023-09-27 12:33] LABS: SARS-COV2 (COVID) ANTIGEN,FIA Negative (Negative)
[2023-09-27 17:35] VITALS: BP 114/70; PULSE 72; RESP 18; TEMP 97.8; O2SAT 98
[2023-09-27] MEDS ORDERED: PNEUMOCOCCAL VACCINE POLYVALENT 0.5 ML SYRINGE [PPSV23] IM. ONE (18:00)
[2023-09-27] MEDS ORDERED: INFLUENZA VIRUS VACCINE QVS 2023-24 (6MO+)/PF 60 MCG/0.5 ML SYRINGE IM. ONE (18:00)
[2023-09-27 20:26] VITALS: BP 116/72; PULSE 70; RESP 18; TEMP 97.6
[2023-09-28] MEDS ORDERED: DOCUSATE SODIUM 100 MG CAPSULE PO PRN (06:45)
[2023-09-28] MEDS ORDERED: PETROLATUM,WHITE 28 GM JELLY TP PRN (06:45)
[2023-09-28] MEDS ORDERED: MAG HYDROX/ALUMINUM HYD/SIMETH ES 30 ML SUSPENSION UDCUP PO PRN (06:45)
[2023-09-28] MEDS ORDERED: NICOTINE 14 MG/24 HOUR PATCH TD PRN (06:45)
[2023-09-28] MEDS ORDERED: MAGNESIUM HYDROXIDE SUSPENSION 30 ML UDCUP PO PRN (06:45)
[2023-09-28] MEDS ORDERED: LOPERAMIDE HCL 2 MG CAPSULE PO PRN (06:45)
[2023-09-28] MEDS ORDERED: ONDANSETRON HCL 4 MG TABLET PO PRN (06:45)
[2023-09-28] MEDS ORDERED: IBUPROFEN 400 MG TABLET PO PRN (06:45)
[2023-09-28] MEDS ORDERED: GuaiFENesin/D-METHORPHAN [SUGAR-FREE] 200-20MG/10 ML SYRUP UDCUP PO PRN (06:45)
[2023-09-28] MEDS ORDERED: ACETAMINOPHEN 325 MG TABLET PO PRN (06:45)
[2023-09-28] MEDS ORDERED: ALBUTEROL SULFATE HFA 90 MCG/PUFF 8 GM INHALER IH PRN (06:45)
[2023-09-28] MEDS ORDERED: CloNIDine HCL 0.1 MG TABLET PO PRN (06:45)
[2023-09-28 08:03] VITALS: BP 112/73; PULSE 73; RESP 18; TEMP 97.7; O2SAT 100
[2023-09-28] MEDS: RisperiDONE 2 MG TABLET PO SCH ×2 (09:55→21:00)
[2023-09-28] MEDS: LORazepam 2 MG TABLET PO PRN (14:45)
[2023-09-28] MEDS: HALOPERIDOL 5 MG TABLET PO PRN (16:00)
[2023-09-28 20:04] VITALS: RESP 17
[2023-09-29 07:37] LABS: HEMOGLOBIN A1C 5.4 % (3.8-5.6)
[2023-09-29 08:04] LABS: THYROID STIMULATING HORMONE 1.33 uIU/mL (0.36-3.74)
[2023-09-29 08:12] VITALS: BP 106/68; PULSE 105; RESP 18; TEMP 98; O2SAT 99
[2023-09-29 08:22] LABS: CHOL/HDL RATIO 2.8 (4.2-7.3)
[2023-09-29] MEDS: RisperiDONE 2 MG TABLET PO SCH ×2 (09:38→20:17)
[2023-09-29] MEDS: LORazepam 2 MG TABLET PO PRN (09:39)
[2023-09-30] MEDS: RisperiDONE 2 MG TABLET PO SCH ×2 (08:03→20:17)
[2023-09-30] MEDS: LORazepam 2 MG TABLET PO PRN ×2 (08:03→15:30)
[2023-09-30 09:57] VITALS: BP 103/69; PULSE 113; RESP 18; O2SAT 99
[2023-09-30] MEDS: HALOPERIDOL 5 MG TABLET PO PRN (15:30)
[2023-09-30] MEDS: NICOTINE 14 MG/24 HOUR PATCH TD PRN (15:50)
[2023-09-30 20:32] VITALS: RESP 18
[2023-09-30] MEDS: ZOLPIDEM TARTRATE 10 MG TABLET PO PRN (22:15)
[2023-10-01] MEDS: LORazepam 2 MG TABLET PO PRN ×2 (08:15→13:24)
[2023-10-01] MEDS: RisperiDONE 2 MG TABLET PO SCH ×2 (08:15→20:59)
[2023-10-01] MEDS: NICOTINE 14 MG/24 HOUR PATCH TD PRN (08:18)
[2023-10-01 10:38] VITALS: BP 116/59; PULSE 108; RESP 18; TEMP 98; O2SAT 100
[2023-10-01] MEDS: HALOPERIDOL 5 MG TABLET PO PRN (10:51)
[2023-10-01] MEDS: ZOLPIDEM TARTRATE 10 MG TABLET PO PRN (20:10)
[2023-10-01 20:28] VITALS: RESP 18
[2023-10-02] MEDS: RisperiDONE 2 MG TABLET PO SCH (08:11)
[2023-10-02] MEDS: LORazepam 2 MG TABLET PO PRN (08:11)
[2023-10-02 09:05] VITALS: BP 118/65; PULSE 108; RESP 16; TEMP 97.2; O2SAT 100
== END 2023-10-02 10:17 | disposition left against medical advice (07) | DRG 750 ==
LOC: EMS 09:50 → 3EC 14:56
PROVIDERS: ADMIT Psychiatry & Neurology Child & Adolescent Psychiatry; ATTEND Psychiatry & Neurology Child & Adolescent Psychiatry
DX: F20.9 Schizophrenia, unspecified (principal); R45.851 Suicidal ideations; F10.10 Alcohol abuse, uncomplicated; F41.9 Anxiety disorder, unspecified; G47.00 Insomnia, unspecified; Z20.822 Contact with and (suspected) exposure to COVID-19; F17.210 Nicotine dependence, cigarettes, uncomplicated; F12.10 Cannabis abuse, uncomplicated; F14.10 Cocaine abuse, uncomplicated; Z59.00 Homelessness unspecified
CPT/HCPCS: 80053; 80061; 80307; 83036; 84443; 85025; 99285; G0480

== ENCOUNTER 2023-10-13 19:01 | Emergency (ER) | payer MEDICAID, OTHER ==
[~2023-10-13] VITALS: Ht 180.3 cm; Wt 67.3 kg
[2023-10-13 19:26] VITALS: BP 111/62; PULSE 80; RESP 17; TEMP 98.4
== END 2023-10-13 22:29 | disposition left against medical advice (07) ==
LOC: EMS 19:06
DX: G47.00 Insomnia, unspecified (principal); Z53.21 Procedure and treatment not carried out due to patient leaving prior to being seen by health care provider
CPT/HCPCS: 99281; Z7502